=== PATIENT | male | born 1965 | race Two or more races ===

== ENCOUNTER 2024-03-24 19:38 | Emergency (ER) | payer OTHER ==
[~2024-03-24] VITALS: Ht 162.6 cm; Wt 80.7 kg
[2024-03-24] MEDS ORDERED: LIDOCAINE HCL 1% 20 ML VIAL ONE (20:07)
[2024-03-24] MEDS ORDERED: CEFTRIAXONE 1 G VIAL ONE (20:07)
[2024-03-24] MEDS ORDERED: IBUPROFEN 600 MG TABLET ONE (20:08)
[2024-03-24] MEDS ORDERED: IBUP-1490 PO (20:09)
[2024-03-24] MEDS ORDERED: CEPH500T PO (20:09)
[2024-03-24] MEDS: IBUPROFEN 600 MG TABLET PO ONE (20:15)
[2024-03-24] MEDS: CEFTRIAXONE 1 G VIAL IM ONE (20:15)
[2024-03-24 20:26] VITALS: BP 130/69; TEMP 98.6; O2SAT 95
== END 2024-03-24 20:26 | disposition home or self-care (01) ==
LOC: ER 19:49
DX: M71.9 Bursopathy, unspecified (principal); L03.116 Cellulitis of left lower limb; Z79.899 Other long term (current) drug therapy; Z60.2 Problems related to living alone; W57.XXXA Bitten or stung by nonvenomous insect and other nonvenomous arthropods, initial encounter; Y93.89 Activity, other specified; Y92.89 Other specified places as the place of occurrence of the external cause; Y99.8 Other external cause status
CPT/HCPCS: 99283; 96372; J0696; A4606; A4663; J3490